=== PATIENT | female | born 1955 | race African-American/Black ===

== ENCOUNTER 2020-12-06 12:46 | Emergency (ER) | payer MEDICAID, OTHER ==
[~2020-12-06] VITALS: Ht 170.2 cm; Wt 113.4 kg
[2020-12-06] MEDS ORDERED: cloNIDine HCL 0.1 MG TAB PO ONE (13:00)
[2020-12-06 14:12] VITALS: BP 156/93
== END 2020-12-06 14:18 | disposition home or self-care (01) ==
LOC: ER 12:46
DX: S39.012A Strain of muscle, fascia and tendon of lower back, initial encounter (principal); M51.36 Other intervertebral disc degeneration, lumbar region; I10 Essential (primary) hypertension; E11.9 Type 2 diabetes mellitus without complications; V43.62XA Car passenger injured in collision with other type car in traffic accident, initial encounter; Y93.89 Activity, other specified; Y92.488 Other paved roadways as the place of occurrence of the external cause; Y99.8 Other external cause status
CPT/HCPCS: 72110